=== PATIENT | female | born 1985 | race Caucasian/White ===

== ENCOUNTER 2017-12-13 22:02 | Emergency (ER) | payer SELFPAY ==
[~2017-12-13] VITALS: Ht 154.9 cm; Wt 68.0 kg
[2017-12-13 22:30] VITALS: Ht 154.9 cm; Wt 68.0 kg
[2017-12-14 00:37] VITALS: BP 134/86
== END 2017-12-14 00:37 | disposition home or self-care (01) ==
LOC: ED 22:02
DX: L03.012 Cellulitis of left finger (principal)